=== PATIENT | male | born 1995 | race African-American/Black ===

== ENCOUNTER 2019-01-15 21:16 | Emergency (ER) | payer MEDICAID ==
[~2019-01-15] VITALS: Ht 175.3 cm; Wt 59.0 kg
[2019-01-15] MEDS ORDERED: LIDOCAINE W/ EPINEPHRINE 2% INJ 20ML VIAL IJ ONE (22:00)
[2019-01-15] MEDS ORDERED: TETANUS-DIPTH-ACEL PERTUSSIS 0.5ML SYRG IM ONE (22:00)
[2019-01-15 22:35] VITALS: BP 132/84
== END 2019-01-15 22:55 | disposition home or self-care (01) ==
LOC: ER 21:21
DX: S81.811A Laceration without foreign body, right lower leg, initial encounter (principal); W26.8XXA Contact with other sharp object(s), not elsewhere classified, initial encounter; Y93.89 Activity, other specified; Y92.89 Other specified places as the place of occurrence of the external cause; Y99.8 Other external cause status
CPT/HCPCS: 12002; 90471; 90715

== ENCOUNTER 2019-01-25 09:13 | Emergency (ER) | payer MEDICAID ==
[~2019-01-25] VITALS: Ht 177.8 cm; Wt 59.0 kg
[2019-01-25 09:40] VITALS: BP 147/92
== END 2019-01-25 09:53 | disposition home or self-care (01) ==
LOC: ER 09:17
DX: S81.811D Laceration without foreign body, right lower leg, subsequent encounter (principal); W26.8XXD Contact with other sharp object(s), not elsewhere classified, subsequent encounter